=== PATIENT | female | born 1945 | race Caucasian/White ===

== ENCOUNTER 2018-02-13 17:32 | Inpatient (IN) | payer MEDICARE, MEDICAID, OTHER ==
[2018-02-13 19:39] LABS: ADD MAN DIFF? NO
[2018-02-13 19:43] LABS: ABNORMAL IP MESSAGE 1; BASOPHILS % 0.5 % (0.0-2.0); EOSINOPHILS % 0.4 % (0.0-7.0); HEMATOCRIT 35.2 % (37.0-47.0); HEMOGLOBIN 11.4 g/dl (12.0-16.0); LYMPHOCYTES # 0.5 10^3/ul (0.8-2.9); LYMPHOCYTES % 5.6 % (15.0-51.0); MEAN CORPUSCULAR HEMOGLOBIN 28.1 pg (29.0-33.0); MEAN CORPUSCULAR HGB CONC 32.4 g/dl (32.0-37.0); MEAN CORPUSCULAR VOLUME 86.7 fl (82.0-101.0); MEAN PLATELET VOLUME 10.3 fl (7.4-10.4); MONOCYTE # 0.4 10^3/ul (0.3-0.9); MONOCYTES % 4.3 % (0.0-11.0); NEUTROPHIL # 7.4 10^3/ul (1.6-7.5); NEUTROPHILS % 88.6 % (39.0-77.0); PLATELET COUNT 196 10^3/UL (140-415); RED BLOOD COUNT 4.06 10^6/ul (4.20-5.40); RED CELL DISTRIBUTION WIDTH 13.3 % (11.5-14.5)
[2018-02-13 19:43] LABS: WHITE BLOOD COUNT 8.3 10^3/ul (4.8-10.8)
[2018-02-13 19:44] LABS: POSITIVE DIFF @See below
[2018-02-13] MEDS: ACETAMINOPHEN 325 MG TAB PO (19:50)
[2018-02-13 19:55] LABS: ADD UMIC YES; UR ASCORBIC ACID 20 mg/dL (NEGATIVE); UR BACTERIA FEW /HPF (NONE SEEN); UR BILIRUBIN (Dip) NEGATIVE (NEGATIVE); UR BLOOD (Dip) NEGATIVE (NEGATIVE); UR CLARITY CLEAR (CLEAR); UR COLOR AMBER (YELLOW); UR GLUCOSE (Dip) NEGATIVE (NEGATIVE); UR KETONES (Dip) TRACE mg/dL (NEGATIVE); UR LEUKOCYTE ESTERASE (Dip) NEGATIVE Leu/ul (NEGATIVE); UR NITRITE (Dip) NEGATIVE (NEGATIVE); UR RBC 1 /HPF (0-5); UR SPECIFIC GRAVITY (Dip) 1.021 (1.003-1.030); UR SQUAMOUS EPITHELIAL CELL FEW /HPF (FEW); UR TOTAL PROTEIN (Dip) 1+ mg/dl (NEGATIVE); UR UROBILINOGEN (Dip) 1+ mg/dL (NEGATIVE); UR WBC 2 /HPF (0-5)
[2018-02-13 20:03] LABS: INR 1.17; PROTIME 15.1 Sec (11.9-14.9); PT RATIO 1.2
[2018-02-13 20:04] LABS: ALANINE AMINOTRANSFERASE 246 IU/L (13-69); ALBUMIN 4.1 g/dl (3.3-4.9); ALBUMIN/GLOBULIN RATIO 1.28; ALKALINE PHOSPHATASE 121 IU/L (42-121); ANION GAP 12 (8-16); ASPARTATE AMINO TRANSFERASE 247 IU/L (15-46); BILIRUBIN,INDIRECT 1.2 mg/dl (0-1.1); BILIRUBIN,TOTAL 1.9 mg/dl (0.2-1.3); BLOOD UREA NITROGEN 23 mg/dl (7-20); CALCIUM 9.7 mg/dl (8.4-10.2); CARBON DIOXIDE 25 mmol/L (21-31); CHLORIDE 98 mmol/L (97-110); CREATININE 1.11 mg/dl (0.44-1.00); GLUCOSE 93 mg/dl (70-220); PARTIAL THROMBOPLASTIN TIME 31.5 Sec (25.0-35.0); SODIUM 131 mmol/L (135-144); TOTAL PROTEIN 7.3 g/dl (6.1-8.1)
[2018-02-13 20:05] LABS: ETHANOL < 10.0 mg/dl
[2018-02-13 20:06] LABS: OPIATES Negative (NEGATIVE)
[2018-02-13 20:07] LABS: AMPHETAMINE/METHAMPHETAMINE Negative (NEGATIVE); BARBITURATES Negative (NEGATIVE); BENZODIAZEPINES Negative (NEGATIVE); CANNABINOIDS Negative (NEGATIVE); COCAINE Negative (NEGATIVE)
[2018-02-13 20:15] LABS: TROPONIN-I 0.028 ng/ml (0.000-0.120)
[2018-02-13] MEDS: CEFTRIAXONE 2 GM/50 ML (PMX) 50 ML IVPB (20:19)
[2018-02-13] MEDS: metroNIDAZOLE 500 MG/NS (PMX) 100 ML IVPB (20:59)
[2018-02-13] MEDS ORDERED: DIPHTH/TET/ACEL PERTUSS (ADULT) 0.5 ML VIAL IM* (21:00)
[2018-02-13 21:38] LABS: LACTIC ACID 0.6 mmol/L (0.5-2.0)
[2018-02-13] MEDS: VANCOMYCIN 1 GM (PMX) 250 ML IVPB (22:01)
[2018-02-13 23:38] LABS: LACTIC ACID 0.8 mmol/L (0.5-2.0)
[2018-02-14] MEDS: DEXTROSE 5%-0.45% NACL 1,000 ML IV ×3 (02:26→22:03)
[2018-02-14 05:12] LABS: ADD MAN DIFF? NO
[2018-02-14 05:23] LABS: WHITE BLOOD COUNT 4.8 10^3/ul (4.8-10.8)
[2018-02-14 05:23] LABS: ABNORMAL IP MESSAGE 1; BASOPHILS % 0.8 % (0.0-2.0); EOSINOPHILS # 0.1 10^3/ul (0.0-0.5); EOSINOPHILS % 2.5 % (0.0-7.0); HEMATOCRIT 32.4 % (37.0-47.0); HEMOGLOBIN 10.6 g/dl (12.0-16.0); LYMPHOCYTES # 0.3 10^3/ul (0.8-2.9); MEAN CORPUSCULAR HEMOGLOBIN 28.4 pg (29.0-33.0); MEAN CORPUSCULAR HGB CONC 32.7 g/dl (32.0-37.0); MEAN CORPUSCULAR VOLUME 86.9 fl (82.0-101.0); MEAN PLATELET VOLUME 10.4 fl (7.4-10.4); MONOCYTE # 0.3 10^3/ul (0.3-0.9); MONOCYTES % 6.7 % (0.0-11.0); NEUTROPHILS % 83.4 % (39.0-77.0); PLATELET COUNT 162 10^3/UL (140-415); RED BLOOD COUNT 3.73 10^6/ul (4.20-5.40)
[2018-02-14 05:43] LABS: ANION GAP 12 (8-16); BLOOD UREA NITROGEN 23 mg/dl (7-20); CALCIUM 9.6 mg/dl (8.4-10.2); CARBON DIOXIDE 26 mmol/L (21-31); CHLORIDE 104 mmol/L (97-110); CREATININE 0.97 mg/dl (0.44-1.00); GLUCOSE 107 mg/dl (70-220); MAGNESIUM 1.7 mg/dl (1.7-2.5); PHOSPHORUS 2.8 mg/dl (2.5-4.9); POTASSIUM 3.5 mmol/L (3.5-5.1); SODIUM 138 mmol/L (135-144)
[2018-02-14 06:20] LABS: POSITIVE DIFF @See below
[2018-02-14 08:12] LABS: ALANINE AMINOTRANSFERASE 193 IU/L (13-69); ALBUMIN 3.5 g/dl (3.3-4.9); ALKALINE PHOSPHATASE 106 IU/L (42-121); ASPARTATE AMINO TRANSFERASE 178 IU/L (15-46); BILIRUBIN,INDIRECT 0.7 mg/dl (0-1.1); BILIRUBIN,TOTAL 1.1 mg/dl (0.2-1.3); TOTAL PROTEIN 6.4 g/dl (6.1-8.1)
[2018-02-14] MEDS ORDERED: morphine 2 MG INJ IV ×2 (10:00)
[2018-02-14] MEDS: PIPER-TAZO 2.25 GM (PMX) 50 ML IVPB (11:00)
[2018-02-14] MEDS ORDERED: LIDOCAINE 1% (MPF) 30 ML INJ (13:51)
[2018-02-14] MEDS ORDERED: BUPIVACAINE 0.25%/EPI (MDV) 50 ML VIAL INJ (13:51)
[2018-02-14 15:11] LABS: ALANINE AMINOTRANSFERASE 171 IU/L (13-69); ALBUMIN 3.3 g/dl (3.3-4.9); ALBUMIN/GLOBULIN RATIO 1.22; ALKALINE PHOSPHATASE 98 IU/L (42-121); ANION GAP 8 (8-16); ASPARTATE AMINO TRANSFERASE 130 IU/L (15-46); BILIRUBIN,INDIRECT 0.5 mg/dl (0-1.1); BILIRUBIN,TOTAL 0.6 mg/dl (0.2-1.3); BLOOD UREA NITROGEN 20 mg/dl (7-20); CALCIUM 9.5 mg/dl (8.4-10.2); CARBON DIOXIDE 28 mmol/L (21-31); CHLORIDE 105 mmol/L (97-110); CREATININE 0.87 mg/dl (0.44-1.00); GLUCOSE 129 mg/dl (70-220); LIPASE 45 U/L (23-300); POTASSIUM 3.4 mmol/L (3.5-5.1); SODIUM 138 mmol/L (135-144)
[2018-02-14] MEDS: ONDANSETRON 4 MG INJ IV (18:28)
[2018-02-14] MEDS: LORAZEPAM 2 MG INJ IV (22:02)
[2018-02-15] MEDS: DEXTROSE 5%-0.45% NACL 1,000 ML IV ×2 (08:00→18:31)
[2018-02-15] MEDS: HYDROCHLOROTHIAZIDE 12.5 MG CAP PO (09:48)
[2018-02-15] MEDS: LISINOPRIL 5 MG TAB PO (09:48)
[2018-02-15 09:52] LABS: ADD MAN DIFF? NO
[2018-02-15 09:56] LABS: BASOPHIL # 0.1 10^3/ul (0.0-0.1); BASOPHILS % 1.1 % (0.0-2.0); EOSINOPHILS # 0.3 10^3/ul (0.0-0.5); EOSINOPHILS % 6.3 % (0.0-7.0); HEMATOCRIT 37.7 % (37.0-47.0); HEMOGLOBIN 11.9 g/dl (12.0-16.0); LYMPHOCYTES # 0.7 10^3/ul (0.8-2.9); LYMPHOCYTES % 14.9 % (15.0-51.0); MEAN CORPUSCULAR HEMOGLOBIN 27.7 pg (29.0-33.0); MEAN CORPUSCULAR HGB CONC 31.6 g/dl (32.0-37.0); MEAN CORPUSCULAR VOLUME 87.7 fl (82.0-101.0); MEAN PLATELET VOLUME 10.1 fl (7.4-10.4); MONOCYTE # 0.3 10^3/ul (0.3-0.9); MONOCYTES % 6.9 % (0.0-11.0); NEUTROPHIL # 3.4 10^3/ul (1.6-7.5); NEUTROPHILS % 70.6 % (39.0-77.0); PLATELET COUNT 206 10^3/UL (140-415); RED CELL DISTRIBUTION WIDTH 13.6 % (11.5-14.5)
[2018-02-15 09:56] LABS: WHITE BLOOD COUNT 4.8 10^3/ul (4.8-10.8)
[2018-02-15 10:17] LABS: ALANINE AMINOTRANSFERASE 164 IU/L (13-69); ALBUMIN 3.7 g/dl (3.3-4.9); ALBUMIN/GLOBULIN RATIO 1.15; ALKALINE PHOSPHATASE 114 IU/L (42-121); ANION GAP 11 (8-16); ASPARTATE AMINO TRANSFERASE 96 IU/L (15-46); BILIRUBIN,INDIRECT 0.4 mg/dl (0-1.1); BILIRUBIN,TOTAL 0.4 mg/dl (0.2-1.3); BLOOD UREA NITROGEN 15 mg/dl (7-20); CARBON DIOXIDE 25 mmol/L (21-31); CHLORIDE 110 mmol/L (97-110); CREATININE 0.86 mg/dl (0.44-1.00); GLUCOSE 110 mg/dl (70-220); POTASSIUM 4.1 mmol/L (3.5-5.1); SODIUM 142 mmol/L (135-144); TOTAL PROTEIN 6.9 g/dl (6.1-8.1)
[2018-02-15] MEDS ORDERED: morphine LIQ (10 MG/5 ML) CUP PO ×2 (14:30)
[2018-02-15] MEDS: ZOLPIDEM 5 MG TAB PO (22:24)
[2018-02-16] MEDS: DEXTROSE 5%-0.45% NACL 1,000 ML IV ×4 (04:00→23:17)
[2018-02-16] MEDS ORDERED: LIDOCAINE 2% (SDV) 5 ML INJ (07:00)
[2018-02-16] MEDS: HYDROCHLOROTHIAZIDE 12.5 MG CAP PO (09:53)
[2018-02-16] MEDS: LISINOPRIL 5 MG TAB PO (09:53)
[2018-02-16] MEDS ORDERED: IOHEXOL 300MG/ML 30 ML BTL (17:19)
[2018-02-16] MEDS ORDERED: LIDOCAINE 1% (MPF) 30 ML INJ (17:19)
[2018-02-16] MEDS ORDERED: BUPIVACAINE 0.25%/EPI (SDV) 30 ML INJ (17:19)
[2018-02-16] MEDS ORDERED: MIDAZOLAM 1 MG/ML 2 ML INJ (17:35)
[2018-02-16] MEDS ORDERED: FENTAnyl 50 MCG/ML VIAL (18:16)
[2018-02-16] MEDS ORDERED: hydrALAzine 20 MG INJ (18:26)
[2018-02-16] MEDS ORDERED: morphine 10 MG INJ (19:33)
[2018-02-16] MEDS ORDERED: ETOMIDATE 20 MG INJ (19:42)
[2018-02-16] MEDS ORDERED: ONDANSETRON 4 MG INJ (19:42)
[2018-02-16] MEDS ORDERED: CEFAZOLIN 1 GM INJ (19:42)
[2018-02-16] MEDS ORDERED: PROPOFOL 20 ML (19:42)
[2018-02-16] MEDS ORDERED: ROCURONIUM 50 MG INJ (19:42)
[2018-02-16] MEDS ORDERED: HYDROmorphONE 1 MG/5 ML IV SYRINGE IV ×2 (20:30)
[2018-02-16] MEDS ORDERED: MEPERIDINE 25 MG INJ IV (20:30)
[2018-02-16] MEDS ORDERED: DIPHENHYDRAMINE 50 MG INJ IV (20:30)
[2018-02-16] MEDS ORDERED: FENTAnyl 50 MCG/ML VIAL IV (20:30)
[2018-02-16] MEDS ORDERED: ONDANSETRON 4 MG INJ IV (20:30)
[2018-02-16] MEDS ORDERED: EPHEDrine SULFATE 50 MG/5 ML SYG IV (20:30)
[2018-02-16] MEDS ORDERED: METOCLOPRAMIDE 10 MG INJ IV (20:30)
[2018-02-16] MEDS: EPHEDrine 50 MG INJ IV (21:01)
[2018-02-16 21:20] LABS: ADD MAN DIFF? NO
[2018-02-16 21:23] LABS: WHITE BLOOD COUNT 9.3 10^3/ul (4.8-10.8)
[2018-02-16 21:23] LABS: BASOPHILS % 0.4 % (0.0-2.0); EOSINOPHILS # 0.2 10^3/ul (0.0-0.5); EOSINOPHILS % 1.6 % (0.0-7.0); HEMATOCRIT 38.8 % (37.0-47.0); HEMOGLOBIN 11.9 g/dl (12.0-16.0); LYMPHOCYTES # 1.1 10^3/ul (0.8-2.9); LYMPHOCYTES % 11.3 % (15.0-51.0); MEAN CORPUSCULAR HEMOGLOBIN 27.8 pg (29.0-33.0); MEAN CORPUSCULAR HGB CONC 30.7 g/dl (32.0-37.0); MEAN CORPUSCULAR VOLUME 90.7 fl (82.0-101.0); MEAN PLATELET VOLUME 10.3 fl (7.4-10.4); MONOCYTE # 0.8 10^3/ul (0.3-0.9); MONOCYTES % 8.7 % (0.0-11.0); NEUTROPHIL # 7.2 10^3/ul (1.6-7.5); NEUTROPHILS % 77.2 % (39.0-77.0); PLATELET COUNT 189 10^3/UL (140-415); RED BLOOD COUNT 4.28 10^6/ul (4.20-5.40); RED CELL DISTRIBUTION WIDTH 13.3 % (11.5-14.5)
[2018-02-16] MEDS: SOD CHLORIDE 0.9% 500 ML IV ×2 (22:35→23:17)
[2018-02-16] MEDS: AMIODARONE 150MG/D5W BOLUS 100 ML IV (23:17)
[2018-02-16] MEDS ORDERED: NORepinephrine 8MG/250 ML (PMX 250 ML IV (23:30)
[2018-02-17 00:31] LABS: TROPONIN-I 0.943 ng/ml (0.000-0.120)
[2018-02-17] MEDS: METOPROLOL 25 MG TAB PO ×2 (00:57→21:03)
[2018-02-17 05:07] LABS: ADD MAN DIFF? NO
[2018-02-17 05:10] LABS: ABNORMAL IP MESSAGE 1; BASOPHILS % 0.4 % (0.0-2.0); EOSINOPHILS % 0.4 % (0.0-7.0); HEMATOCRIT 32.9 % (37.0-47.0); HEMOGLOBIN 10.5 g/dl (12.0-16.0); LYMPHOCYTES # 0.4 10^3/ul (0.8-2.9); MEAN CORPUSCULAR HEMOGLOBIN 28.4 pg (29.0-33.0); MEAN CORPUSCULAR HGB CONC 31.9 g/dl (32.0-37.0); MEAN CORPUSCULAR VOLUME 88.9 fl (82.0-101.0); MEAN PLATELET VOLUME 10.3 fl (7.4-10.4); MONOCYTE # 0.5 10^3/ul (0.3-0.9); MONOCYTES % 7.3 % (0.0-11.0); NEUTROPHIL # 5.9 10^3/ul (1.6-7.5); NEUTROPHILS % 85.5 % (39.0-77.0); PLATELET COUNT 227 10^3/UL (140-415); RED CELL DISTRIBUTION WIDTH 13.5 % (11.5-14.5)
[2018-02-17 05:10] LABS: WHITE BLOOD COUNT 6.9 10^3/ul (4.8-10.8)
[2018-02-17 05:11] LABS: POSITIVE DIFF @See below
[2018-02-17 05:58] LABS: ANION GAP 12 (8-16); BLOOD UREA NITROGEN 17 mg/dl (7-20); CALCIUM 9.7 mg/dl (8.4-10.2); CARBON DIOXIDE 23 mmol/L (21-31); CHLORIDE 111 mmol/L (97-110); CREATININE 1.11 mg/dl (0.44-1.00); GLUCOSE 136 mg/dl (70-220); SODIUM 142 mmol/L (135-144)
[2018-02-17] MEDS: HYDROCODONE/APAP (5/325) TAB PO ×5 (06:05→21:02)
[2018-02-17] MEDS: DEXTROSE 5%-0.45% NACL 1,000 ML IV ×3 (08:35→20:59)
[2018-02-17] MEDS: AMIODARONE 900 MG in DEXTROSE 5% 482 ML IV (08:47)
[2018-02-17] MEDS: LISINOPRIL 5 MG TAB PO (10:17)
[2018-02-17] MEDS: HYDROCHLOROTHIAZIDE 12.5 MG CAP PO (10:17)
[2018-02-17] MEDS: MAGNESIUM SULFATE 2 GM/50 ML 50 ML IVPB (13:24)
[2018-02-17 14:06] LABS: TROPONIN-I 0.516 ng/ml (0.000-0.120)
[2018-02-17] MEDS ORDERED: METOPROLOL 5 MG INJ IV (14:30)
[2018-02-17] MEDS: LIDOCAINE 1% (MPF) 5 ML VIAL SC (21:05)
[2018-02-17] MEDS: ZOLPIDEM 5 MG TAB PO (23:38)
[2018-02-18 05:13] LABS: ADD MAN DIFF? NO
[2018-02-18 05:49] LABS: CHOL/HDL RATIO 3.8 RATIO; HDL CHOLESTEROL 36 mg/dl (33-92); LDL CHOLESTEROL,CALCULATED 85 mg/dl; TRIGLYCERIDES 90 mg/dl (0-149)
[2018-02-18 05:49] LABS: CHOLESTEROL 139 mg/dl (100-200)
[2018-02-18 05:57] LABS: ANION GAP 14 (8-16); BLOOD UREA NITROGEN 16 mg/dl (7-20); CALCIUM 8.9 mg/dl (8.4-10.2); CARBON DIOXIDE 25 mmol/L (21-31); CHLORIDE 101 mmol/L (97-110); CREATININE 1.01 mg/dl (0.44-1.00); GLUCOSE 194 mg/dl (70-220); MAGNESIUM 2.1 mg/dl (1.7-2.5); PHOSPHORUS 3.5 mg/dl (2.5-4.9); POTASSIUM 4.1 mmol/L (3.5-5.1); SODIUM 136 mmol/L (135-144)
[2018-02-18] MEDS: DEXTROSE 5%-0.45% NACL 1,000 ML IV ×2 (06:26→16:51)
[2018-02-18 06:31] LABS: BASOPHILS % 0.4 % (0.0-2.0); EOSINOPHILS # 0.2 10^3/ul (0.0-0.5); EOSINOPHILS % 2.5 % (0.0-7.0); HEMATOCRIT 32.6 % (37.0-47.0); HEMOGLOBIN 9.9 g/dl (12.0-16.0); LYMPHOCYTES # 0.9 10^3/ul (0.8-2.9); LYMPHOCYTES % 14.1 % (15.0-51.0); MEAN CORPUSCULAR HGB CONC 30.4 g/dl (32.0-37.0); MEAN CORPUSCULAR VOLUME 92.4 fl (82.0-101.0); MEAN PLATELET VOLUME 11.3 fl (7.4-10.4); MONOCYTE # 0.6 10^3/ul (0.3-0.9); MONOCYTES % 8.5 % (0.0-11.0); NEUTROPHIL # 4.9 10^3/ul (1.6-7.5); NEUTROPHILS % 73.6 % (39.0-77.0); PLATELET COUNT 196 10^3/UL (140-415); RED BLOOD COUNT 3.53 10^6/ul (4.20-5.40); RED CELL DISTRIBUTION WIDTH 13.9 % (11.5-14.5)
[2018-02-18 06:31] LABS: WHITE BLOOD COUNT 6.7 10^3/ul (4.8-10.8)
[2018-02-18 07:14] LABS: POSITIVE DIFF @See below
[2018-02-18] MEDS: METOPROLOL 25 MG TAB PO ×2 (08:31→20:51)
[2018-02-18] MEDS: ASPIRIN 81 MG TAB PO (09:03)
[2018-02-18] MEDS: HYDROCHLOROTHIAZIDE 12.5 MG CAP PO (09:03)
[2018-02-18] MEDS: LISINOPRIL 5 MG TAB PO (09:04)
[2018-02-18] MEDS: HYDROCODONE/APAP (5/325) TAB PO ×2 (11:12→17:37)
[2018-02-19] MEDS: HYDROCODONE/APAP (5/325) TAB PO ×3 (00:08→22:36)
[2018-02-19] MEDS: DEXTROSE 5%-0.45% NACL 1,000 ML IV ×3 (02:23→20:53)
[2018-02-19] MEDS: ZOLPIDEM 5 MG TAB PO (02:34)
[2018-02-19 06:14] LABS: ADD MAN DIFF? NO
[2018-02-19 06:24] LABS: BASOPHILS % 0.4 % (0.0-2.0); EOSINOPHILS # 0.3 10^3/ul (0.0-0.5); HEMATOCRIT 30.4 % (37.0-47.0); HEMOGLOBIN 9.3 g/dl (12.0-16.0); LYMPHOCYTES % 13.9 % (15.0-51.0); MEAN CORPUSCULAR HEMOGLOBIN 27.3 pg (29.0-33.0); MEAN CORPUSCULAR HGB CONC 30.6 g/dl (32.0-37.0); MEAN CORPUSCULAR VOLUME 89.1 fl (82.0-101.0); MONOCYTE # 0.5 10^3/ul (0.3-0.9); MONOCYTES % 7.4 % (0.0-11.0); NEUTROPHIL # 5.2 10^3/ul (1.6-7.5); NEUTROPHILS % 73.6 % (39.0-77.0); PLATELET COUNT 218 10^3/UL (140-415); RED BLOOD COUNT 3.41 10^6/ul (4.20-5.40); RED CELL DISTRIBUTION WIDTH 13.2 % (11.5-14.5)
[2018-02-19 06:24] LABS: WHITE BLOOD COUNT 7.1 10^3/ul (4.8-10.8)
[2018-02-19 07:03] LABS: ALANINE AMINOTRANSFERASE 59 IU/L (13-69); ALBUMIN 2.9 g/dl (3.3-4.9); ALBUMIN/GLOBULIN RATIO 0.96; ALKALINE PHOSPHATASE 91 IU/L (42-121); ANION GAP 11 (8-16); ASPARTATE AMINO TRANSFERASE 29 IU/L (15-46); BILIRUBIN,INDIRECT 0.4 mg/dl (0-1.1); BILIRUBIN,TOTAL 0.4 mg/dl (0.2-1.3); BLOOD UREA NITROGEN 13 mg/dl (7-20); CALCIUM 9.1 mg/dl (8.4-10.2); CARBON DIOXIDE 25 mmol/L (21-31); CHLORIDE 106 mmol/L (97-110); GLUCOSE 114 mg/dl (70-220); POTASSIUM 3.9 mmol/L (3.5-5.1); SODIUM 138 mmol/L (135-144); TOTAL PROTEIN 5.9 g/dl (6.1-8.1)
[2018-02-19] MEDS: ASPIRIN 81 MG TAB PO (08:50)
[2018-02-19] MEDS: HYDROCHLOROTHIAZIDE 12.5 MG CAP PO (08:51)
[2018-02-19] MEDS: LISINOPRIL 5 MG TAB PO (08:51)
[2018-02-19] MEDS: METOPROLOL 25 MG TAB PO ×3 (08:52→20:52)
[2018-02-19] MEDS: ALBUTEROL/IPRATROPIUM (NEB) 3 ML AMP HHN (21:37)
[2018-02-19 21:43] LABS: AADO2 Arterial 95.6 mmHg (7.0-24.0); Allen Test ACCEPTAB; Arterial Base Excess 1.7 mmol/L (-3.0-3); Arterial Blood Gas Oxygen Sat 97.2 mmHG (95.0-100.0); Arterial COHb 0.6 % (0.0-3.0); Arterial Fraction of Oxyhgb 96.4 % (93.0-99.0); Arterial HCO3 26.6 mmol/L (22.0-26.0); Arterial MetHb 0.2 % (0.0-1.5); Arterial Total Hemglobin 12.1 g/dl (12.0-18.0); Arterial pCO2 43.2 mmhg (35-45); MODE NASAL CANNULA; Site Right Radial
[2018-02-20] MEDS: HYDROCHLOROTHIAZIDE 12.5 MG CAP PO (08:39)
[2018-02-20] MEDS: LISINOPRIL 5 MG TAB PO (08:40)
[2018-02-20] MEDS: METOPROLOL 25 MG TAB PO ×2 (08:40→21:00)
[2018-02-20] MEDS: ASPIRIN 81 MG TAB PO (08:42)
[2018-02-20] MEDS: HYDROCODONE/APAP (5/325) TAB PO (12:54)
[2018-02-20] MEDS: POLYETHYLENE GLYCOL 17 GM PACKET PO (21:27)
[2018-02-21 06:40] LABS: ADD MAN DIFF? NO
[2018-02-21 06:42] LABS: BASOPHILS % 0.5 % (0.0-2.0); EOSINOPHILS # 0.3 10^3/ul (0.0-0.5); EOSINOPHILS % 5.5 % (0.0-7.0); HEMOGLOBIN 10.2 g/dl (12.0-16.0); LYMPHOCYTES # 0.8 10^3/ul (0.8-2.9); LYMPHOCYTES % 14.1 % (15.0-51.0); MEAN CORPUSCULAR HEMOGLOBIN 27.9 pg (29.0-33.0); MEAN CORPUSCULAR HGB CONC 31.9 g/dl (32.0-37.0); MEAN CORPUSCULAR VOLUME 87.4 fl (82.0-101.0); MEAN PLATELET VOLUME 9.8 fl (7.4-10.4); MONOCYTE # 0.5 10^3/ul (0.3-0.9); MONOCYTES % 8.8 % (0.0-11.0); NEUTROPHIL # 3.8 10^3/ul (1.6-7.5); NEUTROPHILS % 69.8 % (39.0-77.0); PLATELET COUNT 265 10^3/UL (140-415); RED BLOOD COUNT 3.66 10^6/ul (4.20-5.40)
[2018-02-21 06:42] LABS: WHITE BLOOD COUNT 5.5 10^3/ul (4.8-10.8)
[2018-02-21 07:06] LABS: MAGNESIUM 1.6 mg/dl (1.7-2.5)
[2018-02-21 07:09] LABS: ALANINE AMINOTRANSFERASE 46 IU/L (13-69); ALBUMIN 3.4 g/dl (3.3-4.9); ALBUMIN/GLOBULIN RATIO 1.09; ALKALINE PHOSPHATASE 104 IU/L (42-121); ANION GAP 13 (8-16); ASPARTATE AMINO TRANSFERASE 20 IU/L (15-46); BILIRUBIN,INDIRECT 0.4 mg/dl (0-1.1); BILIRUBIN,TOTAL 0.4 mg/dl (0.2-1.3); BLOOD UREA NITROGEN 14 mg/dl (7-20); CALCIUM 9.7 mg/dl (8.4-10.2); CARBON DIOXIDE 27 mmol/L (21-31); CHLORIDE 106 mmol/L (97-110); CREATININE 0.85 mg/dl (0.44-1.00); GLUCOSE 106 mg/dl (70-220); POTASSIUM 4.1 mmol/L (3.5-5.1); SODIUM 142 mmol/L (135-144); TOTAL PROTEIN 6.5 g/dl (6.1-8.1)
[2018-02-21 07:38] LABS: HEMOGLOBIN A1C 5.8 % (0-5.9)
[2018-02-21] MEDS: HYDROCHLOROTHIAZIDE 12.5 MG CAP PO (09:09)
[2018-02-21] MEDS: LISINOPRIL 5 MG TAB PO (09:10)
[2018-02-21] MEDS: METOPROLOL 25 MG TAB PO ×2 (09:11→20:19)
[2018-02-21] MEDS: ASPIRIN 81 MG TAB PO (09:13)
[2018-02-21] MEDS: POLYETHYLENE GLYCOL 17 GM PACKET PO ×2 (09:15→20:19)
[2018-02-21] MEDS ORDERED: MAGNESIUM SULFATE 2 GM/50 ML 50 ML IVPB (11:30)
[2018-02-21] MEDS: MAGNESIUM CHLORIDE (SR) 64 MG TAB PO (14:25)
[2018-02-21] MEDS: ACETAMINOPHEN 500 MG TAB PO (17:00)
[2018-02-21] MEDS: ZOLPIDEM 5 MG TAB PO (21:54)
== END 2018-02-22 00:11 | DRG 853 ==
LOC: ICU 02-16 22:54 → E/R 17:32 → TEL 02-18 23:20 → MS1 20:25
PROC: 0FT44ZZ Resection of Gallbladder, Percutaneous Endoscopic Approach (ICD-10-PCS; principal; 2018-02-16 16:30)
PROC: 0DNW4ZZ Release Peritoneum, Percutaneous Endoscopic Approach (ICD-10-PCS; 2018-02-16 17:29)
DX: A41.9 Sepsis, unspecified organism (principal); G93.41 Metabolic encephalopathy; I21.A1 Myocardial infarction type 2; N17.9 Acute kidney failure, unspecified; K80.62 Calculus of gallbladder and bile duct with acute cholecystitis without obstruction; N39.0 Urinary tract infection, site not specified; R65.20 Severe sepsis without septic shock; F32.9 Major depressive disorder, single episode, unspecified; I95.9 Hypotension, unspecified; I48.0 Paroxysmal atrial fibrillation; I10 Essential (primary) hypertension; K66.0 Peritoneal adhesions (postprocedural) (postinfection); E66.9 Obesity, unspecified; D64.9 Anemia, unspecified; Z85.3 Personal history of malignant neoplasm of breast; Z68.34 Body mass index [BMI] 34.0-34.9, adult; Z85.43 Personal history of malignant neoplasm of ovary
CPT/HCPCS: 36600; 70450; 71045; 74181; 76705; 80048; 80053; 80061; 80076; 80307; 81001; 82803; 83036; 83605; 83690; 83735; 84100; 84443; 84484; 85025; 85610; 85730; 86850; 86900; 86901; 87040; 87081; 87086; 88304; 93005; 93306; 94664; 96374; 96375; 97110; 97116; 97162; 97530; 99285-25

== ENCOUNTER 2018-02-21 23:40 | Inpatient (IN) | payer MEDICARE, MEDICAID ==
[2018-02-22] MEDS ORDERED: LACTULOSE 30ML CUP PO (00:30)
[2018-02-22] MEDS ORDERED: MAGNESIUM HYDROXIDE 30ML CUP PO (00:30)
[2018-02-22] MEDS ORDERED: BISACODYL 10 MG SUPP PR (00:30)
[2018-02-22 03:57] LABS: ADD UMIC YES; UR ASCORBIC ACID NEGATIVE (NEGATIVE); UR BILIRUBIN (Dip) NEGATIVE (NEGATIVE); UR BLOOD (Dip) 1+ mg/dL (NEGATIVE); UR CLARITY CLEAR (CLEAR); UR COLOR STRAW (YELLOW); UR GLUCOSE (Dip) NEGATIVE (NEGATIVE); UR KETONES (Dip) NEGATIVE (NEGATIVE); UR LEUKOCYTE ESTERASE (Dip) NEGATIVE Leu/ul (NEGATIVE); UR NITRITE (Dip) NEGATIVE (NEGATIVE); UR RBC 0 /HPF (0-5); UR SPECIFIC GRAVITY (Dip) 1.006 (1.003-1.030); UR TOTAL PROTEIN (Dip) NEGATIVE (NEGATIVE); UR UROBILINOGEN (Dip) NEGATIVE (NEGATIVE); UR WBC 0 /HPF (0-5)
[2018-02-22] MEDS ORDERED: METOPROLOL 5 MG INJ IV (05:00)
[2018-02-22 06:42] LABS: ADD MAN DIFF? NO
[2018-02-22 06:53] LABS: WHITE BLOOD COUNT 5.6 10^3/ul (4.8-10.8)
[2018-02-22 06:53] LABS: BASOPHILS % 0.7 % (0.0-2.0); EOSINOPHILS # 0.3 10^3/ul (0.0-0.5); EOSINOPHILS % 5.9 % (0.0-7.0); HEMATOCRIT 31.8 % (37.0-47.0); HEMOGLOBIN 10.2 g/dl (12.0-16.0); LYMPHOCYTES # 0.8 10^3/ul (0.8-2.9); LYMPHOCYTES % 14.7 % (15.0-51.0); MEAN CORPUSCULAR HEMOGLOBIN 27.9 pg (29.0-33.0); MEAN CORPUSCULAR HGB CONC 32.1 g/dl (32.0-37.0); MEAN CORPUSCULAR VOLUME 86.9 fl (82.0-101.0); MEAN PLATELET VOLUME 9.7 fl (7.4-10.4); MONOCYTE # 0.5 10^3/ul (0.3-0.9); MONOCYTES % 8.8 % (0.0-11.0); NEUTROPHIL # 3.8 10^3/ul (1.6-7.5); NEUTROPHILS % 68.8 % (39.0-77.0); PLATELET COUNT 250 10^3/UL (140-415); RED BLOOD COUNT 3.66 10^6/ul (4.20-5.40); RED CELL DISTRIBUTION WIDTH 12.9 % (11.5-14.5)
[2018-02-22 07:20] LABS: MAGNESIUM 1.7 mg/dl (1.7-2.5)
[2018-02-22 07:20] LABS: PHOSPHORUS 3.6 mg/dl (2.5-4.9)
[2018-02-22 07:34] LABS: ALANINE AMINOTRANSFERASE 42 IU/L (13-69); ALBUMIN 3.3 g/dl (3.3-4.9); ALKALINE PHOSPHATASE 96 IU/L (42-121); ANION GAP 12 (8-16); ASPARTATE AMINO TRANSFERASE 21 IU/L (15-46); BILIRUBIN,INDIRECT 0.4 mg/dl (0-1.1); BILIRUBIN,TOTAL 0.4 mg/dl (0.2-1.3); BLOOD UREA NITROGEN 16 mg/dl (7-20); CALCIUM 9.7 mg/dl (8.4-10.2); CARBON DIOXIDE 28 mmol/L (21-31); CHLORIDE 106 mmol/L (97-110); CREATININE 0.86 mg/dl (0.44-1.00); GLUCOSE 104 mg/dl (70-220); POTASSIUM 4.2 mmol/L (3.5-5.1); SODIUM 142 mmol/L (135-144); TOTAL PROTEIN 6.3 g/dl (6.1-8.1)
[2018-02-22] MEDS: METOPROLOL 25 MG TAB PO ×2 (08:20→21:04)
[2018-02-22] MEDS: POLYETHYLENE GLYCOL 17 GM PACKET PO ×2 (08:20→21:00)
[2018-02-22] MEDS: LISINOPRIL 5 MG TAB PO (08:22)
[2018-02-22] MEDS: DOCUSATE SODIUM 100 MG CAP PO ×2 (08:23→21:00)
[2018-02-22] MEDS: HYDROCHLOROTHIAZIDE 12.5 MG CAP PO (08:23)
[2018-02-22] MEDS: ASPIRIN 81 MG TAB PO (08:23)
[2018-02-22] MEDS: ALBUTEROL/IPRATROPIUM (NEB) 3 ML AMP HHN ×4 (09:02→21:21)
[2018-02-22] MEDS: ACETAMINOPHEN 500 MG TAB PO (11:05)
[2018-02-22] MEDS: SENNA TAB PO (21:00)
[2018-02-22] MEDS: ZOLPIDEM 5 MG TAB PO (22:03)
[2018-02-23] MEDS: ALBUTEROL/IPRATROPIUM (NEB) 3 ML AMP HHN ×6 (01:52→20:38)
[2018-02-23] MEDS: DOCUSATE SODIUM 100 MG CAP PO ×2 (08:53→20:11)
[2018-02-23] MEDS: HYDROCODONE/APAP (5/325) TAB PO (08:53)
[2018-02-23] MEDS: ASPIRIN 81 MG TAB PO (08:54)
[2018-02-23] MEDS: POLYETHYLENE GLYCOL 17 GM PACKET PO ×2 (09:00→20:12)
[2018-02-23] MEDS: LISINOPRIL 5 MG TAB PO ×2 (09:00→09:47)
[2018-02-23] MEDS: HYDROCHLOROTHIAZIDE 12.5 MG CAP PO (09:46)
[2018-02-23] MEDS: METOPROLOL 25 MG TAB PO ×2 (09:47→20:09)
[2018-02-23] MEDS: SENNA TAB PO (20:12)
[2018-02-23] MEDS: ZOLPIDEM 5 MG TAB PO (21:57)
[2018-02-24] MEDS: ALBUTEROL/IPRATROPIUM (NEB) 3 ML AMP HHN ×6 (01:00→20:29)
[2018-02-24] MEDS: PANTOPRAZOLE (EC) 40 MG TAB PO (05:26)
[2018-02-24] MEDS: POLYETHYLENE GLYCOL 17 GM PACKET PO ×2 (09:31→20:15)
[2018-02-24] MEDS: DOCUSATE SODIUM 100 MG CAP PO ×2 (09:32→20:12)
[2018-02-24] MEDS: METOPROLOL 25 MG TAB PO ×2 (09:32→20:15)
[2018-02-24] MEDS: HYDROCHLOROTHIAZIDE 12.5 MG CAP PO (09:32)
[2018-02-24] MEDS: ASPIRIN 81 MG TAB PO (09:32)
[2018-02-24] MEDS: LISINOPRIL 5 MG TAB PO (09:32)
[2018-02-24] MEDS: CLOTRIMAZOLE 1% 30 GM CR TOP (13:06)
[2018-02-24] MEDS: ACETAMINOPHEN 500 MG TAB PO (19:29)
[2018-02-24] MEDS: SENNA TAB PO (20:15)
[2018-02-24] MEDS: ZOLPIDEM 5 MG TAB PO (22:24)
[2018-02-25] MEDS: ALBUTEROL/IPRATROPIUM (NEB) 3 ML AMP HHN ×6 (00:33→21:07)
[2018-02-25] MEDS: PANTOPRAZOLE (EC) 40 MG TAB PO (05:19)
[2018-02-25] MEDS: HYDROCHLOROTHIAZIDE 12.5 MG CAP PO (08:31)
[2018-02-25] MEDS: POLYETHYLENE GLYCOL 17 GM PACKET PO ×2 (08:31→20:45)
[2018-02-25] MEDS: ASPIRIN 81 MG TAB PO (08:31)
[2018-02-25] MEDS: CLOTRIMAZOLE 1% 30 GM CR TOP (08:31)
[2018-02-25] MEDS: METOPROLOL 25 MG TAB PO ×2 (08:32→20:40)
[2018-02-25] MEDS: DOCUSATE SODIUM 100 MG CAP PO ×2 (08:32→20:42)
[2018-02-25] MEDS: LISINOPRIL 5 MG TAB PO (08:32)
[2018-02-25] MEDS: MAGNESIUM OXIDE 400 MG TAB PO ×2 (12:20→20:44)
[2018-02-25 16:09] LABS: HEPATITIS B SURFACE ANTIGEN NEGATIVE (NEGATIVE)
[2018-02-25 16:27] LABS: HEPATITIS C VIRAL ANTIBODY NEGATIVE (NEGATIVE)
[2018-02-25] MEDS: SENNA TAB PO (20:45)
[2018-02-25] MEDS: ZOLPIDEM 5 MG TAB PO (21:57)
[2018-02-26] MEDS: ALBUTEROL/IPRATROPIUM (NEB) 3 ML AMP HHN ×6 (01:00→20:24)
[2018-02-26] MEDS: PANTOPRAZOLE (EC) 40 MG TAB PO (06:25)
[2018-02-26] MEDS: MAGNESIUM OXIDE 400 MG TAB PO ×2 (08:32→20:37)
[2018-02-26] MEDS: LISINOPRIL 5 MG TAB PO (08:32)
[2018-02-26] MEDS: METOPROLOL 25 MG TAB PO ×2 (08:32→20:41)
[2018-02-26] MEDS: ASPIRIN 81 MG TAB PO (08:32)
[2018-02-26] MEDS: DOCUSATE SODIUM 100 MG CAP PO ×2 (08:32→20:37)
[2018-02-26] MEDS: HYDROCHLOROTHIAZIDE 12.5 MG CAP PO (08:33)
[2018-02-26] MEDS: CLOTRIMAZOLE 1% 30 GM CR TOP (08:33)
[2018-02-26] MEDS: POLYETHYLENE GLYCOL 17 GM PACKET PO ×2 (08:33→20:36)
[2018-02-26] MEDS: HYDROCODONE/APAP (5/325) TAB PO (14:10)
[2018-02-26] MEDS: SENNA TAB PO (20:36)
[2018-02-26] MEDS: ZOLPIDEM 5 MG TAB PO (22:15)
[2018-02-27] MEDS: ALBUTEROL/IPRATROPIUM (NEB) 3 ML AMP HHN ×2 (00:57→05:12)
[2018-02-27] MEDS: PANTOPRAZOLE (EC) 40 MG TAB PO (06:30)
[2018-02-27 06:57] LABS: ADD MAN DIFF? NO
[2018-02-27 07:04] LABS: BASOPHIL # 0.1 10^3/ul (0.0-0.1); BASOPHILS % 1.3 % (0.0-2.0); EOSINOPHILS # 0.5 10^3/ul (0.0-0.5); EOSINOPHILS % 8.3 % (0.0-7.0); HEMATOCRIT 32.7 % (37.0-47.0); HEMOGLOBIN 10.3 g/dl (12.0-16.0); LYMPHOCYTES % 17.1 % (15.0-51.0); MEAN CORPUSCULAR HEMOGLOBIN 27.8 pg (29.0-33.0); MEAN CORPUSCULAR HGB CONC 31.5 g/dl (32.0-37.0); MEAN CORPUSCULAR VOLUME 88.1 fl (82.0-101.0); MEAN PLATELET VOLUME 9.4 fl (7.4-10.4); MONOCYTE # 0.5 10^3/ul (0.3-0.9); MONOCYTES % 8.1 % (0.0-11.0); NEUTROPHIL # 3.6 10^3/ul (1.6-7.5); NEUTROPHILS % 64.7 % (39.0-77.0); PLATELET COUNT 249 10^3/UL (140-415); RED BLOOD COUNT 3.71 10^6/ul (4.20-5.40); RED CELL DISTRIBUTION WIDTH 12.9 % (11.5-14.5)
[2018-02-27 07:04] LABS: WHITE BLOOD COUNT 5.6 10^3/ul (4.8-10.8)
[2018-02-27 07:22] LABS: ALANINE AMINOTRANSFERASE 32 IU/L (13-69); ALBUMIN 3.6 g/dl (3.3-4.9); ALBUMIN/GLOBULIN RATIO 1.38; ALKALINE PHOSPHATASE 99 IU/L (42-121); ANION GAP 18 (8-16); ASPARTATE AMINO TRANSFERASE 24 IU/L (15-46); BILIRUBIN,INDIRECT 0.2 mg/dl (0-1.1); BILIRUBIN,TOTAL 0.2 mg/dl (0.2-1.3); BLOOD UREA NITROGEN 24 mg/dl (7-20); CALCIUM 9.7 mg/dl (8.4-10.2); CARBON DIOXIDE 24 mmol/L (21-31); CHLORIDE 102 mmol/L (97-110); CREATININE 0.99 mg/dl (0.44-1.00); GLUCOSE 105 mg/dl (70-220); POTASSIUM 4.9 mmol/L (3.5-5.1); SODIUM 139 mmol/L (135-144); TOTAL PROTEIN 6.2 g/dl (6.1-8.1)
[2018-02-27] MEDS ORDERED: ALBUTEROL/IPRATROPIUM (NEB) 3 ML AMP HHN (08:30)
[2018-02-27] MEDS: POLYETHYLENE GLYCOL 17 GM PACKET PO ×2 (09:00→20:22)
[2018-02-27] MEDS: CLOTRIMAZOLE 1% 30 GM CR TOP (09:00)
[2018-02-27] MEDS: DOCUSATE SODIUM 100 MG CAP PO ×2 (09:48→20:22)
[2018-02-27] MEDS: MAGNESIUM OXIDE 400 MG TAB PO ×2 (09:48→20:21)
[2018-02-27] MEDS: ASPIRIN 81 MG TAB PO (09:48)
[2018-02-27] MEDS: HYDROCHLOROTHIAZIDE 12.5 MG CAP PO (12:43)
[2018-02-27] MEDS: LISINOPRIL 5 MG TAB PO (12:43)
[2018-02-27] MEDS: METOPROLOL 25 MG TAB PO ×2 (12:44→20:20)
[2018-02-27] MEDS: HYDROCODONE/APAP (5/325) TAB PO (12:45)
[2018-02-27] MEDS: SENNA TAB PO (20:22)
[2018-02-27] MEDS: ZOLPIDEM 5 MG TAB PO (22:03)
[2018-02-28] MEDS: PANTOPRAZOLE (EC) 40 MG TAB PO (06:34)
[2018-02-28] MEDS: POLYETHYLENE GLYCOL 17 GM PACKET PO ×2 (09:00→20:47)
[2018-02-28] MEDS: HYDROCHLOROTHIAZIDE 12.5 MG CAP PO (09:00)
[2018-02-28] MEDS: LISINOPRIL 5 MG TAB PO (09:00)
[2018-02-28] MEDS: METOPROLOL 25 MG TAB PO ×2 (09:00→20:42)
[2018-02-28] MEDS: CLOTRIMAZOLE 1% 30 GM CR TOP (09:00)
[2018-02-28] MEDS: MAGNESIUM OXIDE 400 MG TAB PO ×2 (09:31→20:40)
[2018-02-28] MEDS: ASPIRIN 81 MG TAB PO (09:31)
[2018-02-28] MEDS: DOCUSATE SODIUM 100 MG CAP PO ×2 (09:31→20:43)
[2018-02-28] MEDS: HYDROCODONE/APAP (5/325) TAB PO (09:36)
[2018-02-28] MEDS: SENNA TAB PO (20:47)
[2018-02-28] MEDS: ZOLPIDEM 5 MG TAB PO (21:57)
[2018-03-01] MEDS: PANTOPRAZOLE (EC) 40 MG TAB PO (05:52)
[2018-03-01] MEDS: HYDROCHLOROTHIAZIDE 12.5 MG CAP PO (09:00)
[2018-03-01] MEDS: POLYETHYLENE GLYCOL 17 GM PACKET PO ×2 (09:00→20:27)
[2018-03-01] MEDS: LISINOPRIL 5 MG TAB PO (09:00)
[2018-03-01] MEDS: MAGNESIUM OXIDE 400 MG TAB PO ×2 (09:26→20:24)
[2018-03-01] MEDS: DOCUSATE SODIUM 100 MG CAP PO ×2 (09:26→20:26)
[2018-03-01] MEDS: ASPIRIN 81 MG TAB PO (09:26)
[2018-03-01] MEDS: SENNA TAB PO ×2 (09:27→20:27)
[2018-03-01] MEDS: METOPROLOL 25 MG TAB PO ×2 (09:27→20:25)
[2018-03-01] MEDS: CLOTRIMAZOLE 1% 30 GM CR TOP (09:32)
[2018-03-01] MEDS: ZOLPIDEM 5 MG TAB PO (22:11)
[2018-03-02] MEDS: PANTOPRAZOLE (EC) 40 MG TAB PO (06:05)
[2018-03-02] MEDS: MAGNESIUM OXIDE 400 MG TAB PO ×2 (08:59→22:49)
[2018-03-02] MEDS: ASPIRIN 81 MG TAB PO (08:59)
[2018-03-02] MEDS: HYDROCHLOROTHIAZIDE 12.5 MG CAP PO (08:59)
[2018-03-02] MEDS: POLYETHYLENE GLYCOL 17 GM PACKET PO ×2 (09:00→21:00)
[2018-03-02] MEDS: CLOTRIMAZOLE 1% 30 GM CR TOP (09:00)
[2018-03-02] MEDS: DOCUSATE SODIUM 100 MG CAP PO ×2 (09:00→21:00)
[2018-03-02] MEDS: METOPROLOL 25 MG TAB PO ×2 (09:00→20:43)
[2018-03-02] MEDS: LISINOPRIL 5 MG TAB PO (09:00)
[2018-03-02] MEDS: HYDROCODONE/APAP (5/325) TAB PO (09:01)
[2018-03-02] MEDS: SENNA TAB PO (21:00)
[2018-03-03] MEDS: PANTOPRAZOLE (EC) 40 MG TAB PO (06:18)
[2018-03-03] MEDS: POLYETHYLENE GLYCOL 17 GM PACKET PO ×2 (09:00→20:40)
[2018-03-03] MEDS: METOPROLOL 25 MG TAB PO ×2 (09:00→20:36)
[2018-03-03] MEDS: DOCUSATE SODIUM 100 MG CAP PO ×2 (09:00→20:40)
[2018-03-03] MEDS: MAGNESIUM OXIDE 400 MG TAB PO ×2 (09:05→20:37)
[2018-03-03] MEDS: ASPIRIN 81 MG TAB PO (09:06)
[2018-03-03] MEDS: HYDROCODONE/APAP (5/325) TAB PO (09:07)
[2018-03-03] MEDS: HYDROCHLOROTHIAZIDE 12.5 MG CAP PO (09:07)
[2018-03-03] MEDS: CLOTRIMAZOLE 1% 30 GM CR TOP (09:08)
[2018-03-03] MEDS: LISINOPRIL 5 MG TAB PO (09:20)
[2018-03-03] MEDS: SENNA TAB PO (20:41)
[2018-03-03] MEDS: ZOLPIDEM 5 MG TAB PO (21:43)
[2018-03-04] MEDS: PANTOPRAZOLE (EC) 40 MG TAB PO (06:45)
[2018-03-04] MEDS: DOCUSATE SODIUM 100 MG CAP PO ×2 (09:00→21:00)
[2018-03-04] MEDS: POLYETHYLENE GLYCOL 17 GM PACKET PO ×2 (09:00→21:00)
[2018-03-04] MEDS: ASPIRIN 81 MG TAB PO (09:42)
[2018-03-04] MEDS: HYDROCHLOROTHIAZIDE 12.5 MG CAP PO (09:43)
[2018-03-04] MEDS: METOPROLOL 25 MG TAB PO ×2 (09:44→20:26)
[2018-03-04] MEDS: LISINOPRIL 5 MG TAB PO (09:46)
[2018-03-04] MEDS: MAGNESIUM OXIDE 400 MG TAB PO ×2 (09:47→20:25)
[2018-03-04] MEDS: CLOTRIMAZOLE 1% 30 GM CR TOP (09:48)
[2018-03-04] MEDS: SENNA TAB PO (21:00)
[2018-03-04] MEDS: ZOLPIDEM 5 MG TAB PO (22:35)
[2018-03-05] MEDS: PANTOPRAZOLE (EC) 40 MG TAB PO (05:54)
[2018-03-05] MEDS: DOCUSATE SODIUM 100 MG CAP PO ×2 (08:17→21:00)
[2018-03-05] MEDS: POLYETHYLENE GLYCOL 17 GM PACKET PO ×2 (09:00→21:00)
[2018-03-05] MEDS: MAGNESIUM OXIDE 400 MG TAB PO ×2 (11:41→20:35)
[2018-03-05] MEDS: HYDROCHLOROTHIAZIDE 12.5 MG CAP PO (11:41)
[2018-03-05] MEDS: CLOTRIMAZOLE 1% 30 GM CR TOP (11:41)
[2018-03-05] MEDS: METOPROLOL 25 MG TAB PO ×2 (11:41→21:00)
[2018-03-05] MEDS: LISINOPRIL 5 MG TAB PO (11:42)
[2018-03-05] MEDS: ASPIRIN 81 MG TAB PO (11:42)
[2018-03-05] MEDS: ACETAMINOPHEN 500 MG TAB PO (19:35)
[2018-03-05] MEDS: SENNA TAB PO (21:00)
[2018-03-05] MEDS: ZOLPIDEM 5 MG TAB PO (22:07)
[2018-03-06] MEDS: PANTOPRAZOLE (EC) 40 MG TAB PO (06:06)
[2018-03-06] MEDS: CLOTRIMAZOLE 1% 30 GM CR TOP (09:00)
[2018-03-06] MEDS: METOPROLOL 25 MG TAB PO ×2 (09:00→20:54)
[2018-03-06] MEDS: POLYETHYLENE GLYCOL 17 GM PACKET PO ×2 (09:00→21:00)
[2018-03-06] MEDS: DOCUSATE SODIUM 100 MG CAP PO ×2 (09:00→21:00)
[2018-03-06] MEDS: LISINOPRIL 5 MG TAB PO (09:38)
[2018-03-06] MEDS: ASPIRIN 81 MG TAB PO (09:38)
[2018-03-06] MEDS: MAGNESIUM OXIDE 400 MG TAB PO ×2 (09:39→20:54)
[2018-03-06] MEDS: HYDROCODONE/APAP (5/325) TAB PO (09:39)
[2018-03-06] MEDS: HYDROCHLOROTHIAZIDE 12.5 MG CAP PO (09:39)
[2018-03-06] MEDS: ACETAMINOPHEN 500 MG TAB PO (20:56)
[2018-03-06] MEDS: SENNA TAB PO (21:00)
[2018-03-06] MEDS: ZOLPIDEM 5 MG TAB PO (22:10)
[2018-03-07] MEDS: PANTOPRAZOLE (EC) 40 MG TAB PO (06:18)
[2018-03-07] MEDS: ASPIRIN 81 MG TAB PO (08:14)
[2018-03-07] MEDS: POLYETHYLENE GLYCOL 17 GM PACKET PO (08:15)
[2018-03-07] MEDS: MAGNESIUM OXIDE 400 MG TAB PO (08:15)
[2018-03-07] MEDS: HYDROCHLOROTHIAZIDE 12.5 MG CAP PO (08:15)
[2018-03-07] MEDS: METOPROLOL 25 MG TAB PO (08:15)
[2018-03-07] MEDS: CLOTRIMAZOLE 1% 30 GM CR TOP (08:16)
[2018-03-07] MEDS: DOCUSATE SODIUM 100 MG CAP PO (08:16)
[2018-03-07] MEDS: HYDROCODONE/APAP (5/325) TAB PO (08:20)
== END 2018-03-07 11:30 | disposition home or self-care (01) | DRG 92 ==
LOC: VRC 03-06 07:14
PROC: F07Z5ZZ Bed Mobility Treatment (ICD-10-PCS; principal; 2018-02-21)
PROC: F08Z2ZZ Grooming/Personal Hygiene Treatment (ICD-10-PCS; 2018-02-21)
PROC: F06Z6ZZ Communicative/Cognitive Integration Skills Treatment (ICD-10-PCS; 2018-02-21)
DX: G92 Toxic encephalopathy (principal); N17.9 Acute kidney failure, unspecified; R53.81 Other malaise; I48.91 Unspecified atrial fibrillation; I10 Essential (primary) hypertension; R13.10 Dysphagia, unspecified; I25.2 Old myocardial infarction; Z79.82 Long term (current) use of aspirin; D64.9 Anemia, unspecified; E66.9 Obesity, unspecified; Z68.34 Body mass index [BMI] 34.0-34.9, adult
CPT/HCPCS: 71045; 80053; 81001; 83735; 84100; 85025; 85651; 86803; 87081; 87086; 87340; 92507; 92523; 93005; 94640; 94664; 97110; 97112; 97116; 97150; 97163; 97167; 97530; 97535